=== PATIENT | male | born 1975 | race Caucasian/White ===

== ENCOUNTER 2019-09-12 17:10 | Inpatient (IN) | payer MEDICAID ==
[~2019-09-12] VITALS: Ht 177.8 cm; Wt 108.9 kg
[2019-09-12 17:58] LABS: BASOPHIL % 0.5 % (0-2); PLATELET COUNT 246 x10^3mcL (130-400); RED CELL DISTRIBUTION WIDTH 13.9 % (11.5-14.5)
[2019-09-12 18:19] LABS: ALBUMIN 3.4 g/dL (3.4-5.0); ALKALINE PHOSPHATASE 103 U/L (46-116); ALT/SGPT 51 U/L (16-63); AST/SGOT 27 U/L (15-37); BILIRUBIN TOTAL 0.23 mg/dL (0.20-1.00); CALCIUM 8.1 mg/dL (8.5-10.1); CARBON DIOXIDE 18.6 mmol/L (21-32); CHLORIDE SERUM 105 mmol/L (98-107); CREATININE SERUM 1.5 mg/dL (0.7-1.3); GFR1 53 mL/min; GLUCOSE SERUM 265 mg/dL (74-106); SODIUM SERUM 142 mmol/L (136-145); TOTAL PROTEIN, SERUM 6.8 g/dL (6.4-8.2)
[2019-09-12 18:19] LABS: AMPHETAMINE QUAL UR NONE DETECTED (See below)
[2019-09-12 18:21] LABS: POTASSIUM SERUM 2.9 mmol/L (3.5-5.1)
[2019-09-12 21:48] VITALS: BP 106/65
[2019-09-12 22:14] VITALS: Ht 177.8 cm; Wt 108.9 kg
[2019-09-13 02:03] LABS: UA SPECIFIC GRAVITY 1.025 (1.005-1.035); microscopic required? YES; urine erythrocyte 3+ (NEGATIVE)
[2019-09-13 05:44] VITALS: BP 92/54
[2019-09-13 06:25] LABS: BASOPHIL % 0.2 % (0-2); PLATELET COUNT 238 x10^3mcL (130-400); RED CELL DISTRIBUTION WIDTH 14.3 % (11.5-14.5)
[2019-09-13 07:30] VITALS: BP 98/60
[2019-09-13 08:35] LABS: CALCIUM 7.5 mg/dL (8.5-10.1); CHLORIDE SERUM 110 mmol/L (98-107); CREATININE SERUM 0.8 mg/dL (0.7-1.3); GFR1 > 60 mL/min; GLUCOSE SERUM 209 mg/dL (74-106); MAGNESIUM 2.1 mg/dL (1.8-2.4); PHOSPHOROUS 4.1 mg/dL (2.5-4.9); POTASSIUM SERUM 4.1 mmol/L (3.5-5.1); SODIUM SERUM 144 mmol/L (136-145)
[2019-09-13 11:35] VITALS: BP 103/61
[2019-09-13 18:20] VITALS: BP 117/68
[2019-09-13 19:34] VITALS: BP 122/65
[2019-09-14 04:48] VITALS: BP 116/62
[2019-09-14 06:43] LABS: BASOPHIL % 0.3 % (0-2); PLATELET COUNT 228 x10^3mcL (130-400)
[2019-09-14 06:44] LABS: CALCIUM 7.7 mg/dL (8.5-10.1); CARBON DIOXIDE 25.2 mmol/L (21-32); CHLORIDE SERUM 110 mmol/L (98-107); CREATININE SERUM 0.8 mg/dL (0.7-1.3); GFR1 > 60 mL/min; GLUCOSE SERUM 112 mg/dL (74-106); SODIUM SERUM 142 mmol/L (136-145)
[2019-09-14 08:05] LABS: RED CELL DISTRIBUTION WIDTH 14.6 % (11.5-14.5)
[2019-09-14 08:45] VITALS: BP 143/65
[2019-09-14] MEDS ORDERED: AMOXICILLIN/CLA1 TA6 PO (11:44)
[2019-09-14] MEDS ORDERED: EPIPEN JR 20.5 MG/ML IM (12:07)
[2019-09-14 13:01] VITALS: BP 129/67
== END 2019-09-14 15:45 | disposition home or self-care (01) | DRG 720 ==
LOC: ED 17:10 → DU 20:26 → EDBD 20:26 → EDBEDREQ 20:27 → DU 21:57
PROVIDERS: Emergency Medicine; ADMIT Internal Medicine
DX: A41.9 Sepsis, unspecified organism (principal); I21.A1 Myocardial infarction type 2; J69.0 Pneumonitis due to inhalation of food and vomit; N17.0 Acute kidney failure with tubular necrosis; G92 Toxic encephalopathy; E87.2 Acidosis; T50.991A Poisoning by other drugs, medicaments and biological substances, accidental (unintentional), initial encounter; Y92.89 Other specified places as the place of occurrence of the external cause; E86.0 Dehydration; E87.6 Hypokalemia; J44.1 Chronic obstructive pulmonary disease with (acute) exacerbation; F10.20 Alcohol dependence, uncomplicated; F17.210 Nicotine dependence, cigarettes, uncomplicated; Z91.5 Personal history of self-harm; Z71.6 Tobacco abuse counseling; Z79.899 Other long term (current) drug therapy
CPT/HCPCS: 82962; G0378; G0480; J2405; J2543; J3480; J3490; J7030; J7040; J7060; J7620